=== PATIENT | female | born 1965 | race Caucasian/White ===

== ENCOUNTER → 2018-04-26 | Outpatient (CLI) | payer BC ==
[~2018-04-26] MED LIST: ALBUTEROL0.09 MG/A2 INH; AUGMENTIN 875 M1 TAB PO; AZITHROMYCIN250 MG PO; MOTRIN800 MG PO; MULTIVITAMINS1 EAC1 PO; Motrin,Rufen800 MG PO; NKHM; PREDNICOT20 MG PO; ROBITUSSIN DM120 ML PO; ZITHROMAX Z PA250 MG PO; ZYRTEC10 MG PO
== END | disposition home or self-care (01) ==
LOC: MAMMO 14:45
DX: Z12.31 Encounter for screening mammogram for malignant neoplasm of breast (principal)

== ENCOUNTER → 2018-05-05 | Day surgery (SDC) | payer BC ==
[~2018-05-05] VITALS: Ht 152.4 cm; Wt 54.4 kg
--- NOTE | ~2018-05-05 | PROC NOTE ---
[place], [place] PROCEDURE NOTE NAME: SHAYLA SOLO UNIT #: [id number] ROOM: DOCTOR: ANTHONY JENSEN MD BIRTHDATE: [birth year] DOS: 05/05/2018 PREOPERATIVE DIAGNOSIS: Screening examination. POSTOPERATIVE DIAGNOSIS: Colon polyps x 2. PROCEDURE: Colonoscopy with polypectomy x 2. ENDOSCOPIST: Anthony Jensen MD DATA PROCESSING SYSTEMS PROJECT PLANNER: SAEID. ANESTHESIA: MAC. INDICATIONS: This is a 52-year-old lady here for a screening examination. The procedure and its complications were explained to the patient in detail. Complications that were discussed included but were not limited to bleeding, colon perforation, and missed lesion. She agreed to proceed. DESCRIPTION OF PROCEDURE: After identifying the patient, the patient was brought to the operating suite and laid in the left lateral position. After IV sedation was administered, a timeout procedure was called and a digital rectal exam was performed. This was within normal limits. An adult colonoscope was now introduced into the anal canal and advanced sequentially into the rectum, sigmoid colon, descending colon, transverse colon and ascending colon up to the cecum. The prep was found to be suboptimal in certain areas of the colon and the colon was then cleared of this stool with the help of suction and irrigation. Upon reaching the cecum, the scope was withdrawn. Total withdrawal time was approximately 7 minutes. Upon reaching approximately 20 and 15 cm from the anal verge respectively, 2 small polyps were identified which were removed with the help of polyp forceps and sent together in a single specimen cup for histopathological examination. After hemostasis was confirmed, the scope was withdrawn. No other additional polyps were identified. After the scope was withdrawn, the patient was brought back to the recovery room in a stable fashion. There were no complications. Dr. Anthony Jensen, the attending surgeon, was present throughout the operating case. Based on these findings, the patient is recommended to have another colonoscopy in the next 3-5 years or sooner if she had new symptoms. These findings were discussed with the patient's in the recovery room. [place], [place] PROCEDURE NOTE NAME: SHAYLA SOLO UNIT #: [id number] ROOM: DOCTOR: ANTHONY JENSEN MD BIRTHDATE: [birth year] Anthony Jensen MD CM:ANTHONY:PROCEDURE NOTE [id number] ANTHONY JENSEN MD
[2018-05-05 06:44] VITALS: BP 129/57
[2018-05-05 08:00] VITALS: BP 115/58
[2018-05-05 08:15] VITALS: BP 112/53
[2018-05-05 08:30] VITALS: BP 109/61
== END | disposition home or self-care (01) ==
LOC: SDC 05-02 10:15
DX: Z12.11 Encounter for screening for malignant neoplasm of colon (principal); K62.1 Rectal polyp; K63.5 Polyp of colon; Z98.891 History of uterine scar from previous surgery; Z98.890 Other specified postprocedural states; Z87.891 Personal history of nicotine dependence; Z80.0 Family history of malignant neoplasm of digestive organs; Z83.71 Family history of colonic polyps

== ENCOUNTER → 2020-05-10 | Outpatient (CLI) | payer BC | END | disposition home or self-care (01) | LOC: RAD 12:27 | PROVIDERS: ATTEND Family Medicine | DX: M25.551 Pain in right hip (principal) ==

== ENCOUNTER → 2022-07-27 | Outpatient (CLI) | payer BC ==
[~2022-07-27] MED LIST changes: +GLUCOSAMINE DA1 EACH PO; +K2 PLUS D3 TAB1 EACH PO; +NITROSTAT0.3 M1 SL; +TURMERIC CURCU500 MG PO
== END | disposition home or self-care (01) ==
LOC: CARD 07-22 08:30
PROVIDERS: ATTEND Internal Medicine Cardiovascular Disease
DX: I45.4 Nonspecific intraventricular block (principal); R00.1 Bradycardia, unspecified; R07.2 Precordial pain